=== PATIENT | male | born 1965 | race Caucasian/White ===

== ENCOUNTER 2018-06-17 13:28 | Outpatient (CLI) | payer BC ==
[~2018-06-17] VITALS: Ht 193 cm; Wt 115.7 kg
[~2018-06-17 13:28] MED LIST: ACHYD1T PO; BCL10T PO; CELE200C PO; CIPR500T78 PO; DULO60CA58 PO; DULO60CA6 PO; KETO75CA PO; MELO-195 PO; OMEP-10 PO; OXYC1TAB17 PO; PHEN200T27 PO; TAMS0.4C9 PO; TRAM50TA2 PO
== END 2018-06-17 13:59 | disposition home or self-care (01) ==
LOC: PREOP 13:28
PROVIDERS: ATTEND Surgery
DX: Z01.818 Encounter for other preprocedural examination (principal)

== ENCOUNTER 2018-06-30 10:15 | Day surgery (SDC) | payer BC ==
[~2018-06-30] VITALS: Ht 193 cm; Wt 115.7 kg
--- OUTSIDE RECORDS SUMMARY | 2018-06-30 10:19 | XMS REPORT | Clinical Summary ---
Author Author [facility] Address Unknown Phone Unavailable Care Team Providers Care Fitness Management Director Name Role Phone PCP Unavailable Allergies Not on File Current Medications Not on file Active Problems Not on file Social History Tobacco Use Types Packs/Day Years Used Date Never Assessed Sex Assigned at Date Recorded Not on file Last Filed Vital Signs Not on file Plan of Treatment Not on file Results Not on filefrom Last 3 Months
--- OUTSIDE RECORDS SUMMARY | 2018-06-30 10:20 | XMS REPORT | Continuity of Care Document ---
Author Author [facility] Organization [facility] Address Unknown Phone Unavailable Allergies Active Description Code Type Severity Reaction Onset Reported/Identified Relationship to Patient Clinical Status Yes No Known Drug Allergies [id number] Drug Allergy Unknown N/A 09/03/2014 Medications There is no data. Problems Date Dx Coded Attending Type Code Diagnosis Diagnosed By 12/22/2013 BENNIE MULLEN, COURTNEY Cespedes Ot V45.89 12/22/2013 COURTNEY AVERY MD Ot V57.1 09/04/2014 SOCORRO PEREZ MD Ot 592.0 CALCULUS OF KIDNEY 09/04/2014 SOCORRO PEREZ MD Ot 592.1 CALCULUS OF URETER 09/22/2014 CAROLYN MULLEN, JOSE Sanchez Ot 592.9 09/23/2014 CAROLYN MULLEN, JOSE A Ot 592.9 10/07/2014 CAROLYN MULLEN, JOSE A Ot 592.9 10/20/2014 CAROLYN MULLEN, JOSE A Ot 592.9 11/09/2014 CAROLYN MULLEN, JOSE Sanchez Ot 592.9 11/09/2014 CAROLYN MULLEN, JOSE A Ot 252.00 11/15/2014 CAROLYN MULLEN, JOSE A Ot 592.9 11/15/2014 CAROLYN MULLEN, JOSE A Ot 252.00 11/16/2014 SAURABH MULLEN, JACK Cespedes Ot V43.64 11/16/2014 SAURABH MULLEN, JACK Cespedes Ot V54.81 11/16/2014 SAURABH MULLEN, JACK Cespedes Ot V57.1 11/19/2014 SAURABH MULLEN, JACK Cespedes Ot V43.64 11/19/2014 JACK WILEY MD Ot V54.81 11/19/2014 SAURABH MULLEN, JACK Cespedes Ot V57.1 11/30/2014 JACK WILEY MD Ot V43.64 11/30/2014 JACK WILEY MD Ot V54.81 11/30/2014 JACK WILEY MD Ot V57.1 12/03/2014 JACK WILEY MD Ot V43.64 12/03/2014 JACK WILEY MD Ot V54.81 12/03/2014 JCAK WILEY MD Ot V57.1 12/06/2014 CAROLYN MULLEN, JOSE Sanchez Ot 252.9 12/10/2014 JACK WILEY MD Ot V43.64 12/10/2014 JACK WILEY MD Ot V54.81 12/10/2014 JACK WILEY MD Ot V57.1 2014 CAROLYN MULLEN, JOSE Sanchez Ot 592.9 URINARY CALCULUS NOS 12/22/2014 CAROLYN MULLEN, JOSE Sanchez Ot 252.9 01/06/2015 JACK WILEY MD Ot V43.64 01/06/2015 JACK WILEY MD Ot V54.81 01/06/2015 JACK WILEY MD Ot V57.1 01/21/2015 CHRIS MULLEN, SOCORRO Kenney Ot 786.50 02/03/2015 SOCORRO PEREZ MD Ot 786.50 02/13/2015 JACK WILEY MD Ot V43.64 HIP JOINT REPLACEMENT STATUS 02/13/2015 JACK WILEY MD Ot V54.81 AFTERCARE FOLLOWING JOINT REPLACEMENT 02/13/2015 JACK WILEY MD Ot V57.1 PHYSICAL THERAPY NEC 02/13/2015 JACK WILEY MD Ot Z47.1 AFTERCARE FOLLOWING JOINT REPLACEMENT BUI 02/13/2015 JACK WILEY MD Ot Z51.89 ENCOUNTER FOR OTHER SPECIFIED AFTERCARE 02/13/2015 JACK WILEY MD Ot Z96.649 PRESENCE OF UNSPECIFIED ARTIFICIAL HIP J 03/04/2015 JACK WILEY MD Ot V43.64 HIP JOINT REPLACEMENT STATUS 03/04/2015 JACK WILEY MD Ot V54.81 AFTERCARE FOLLOWING JOINT REPLACEMENT 03/04/2015 JACK WILEY MD Ot V57.1 PHYSICAL THERAPY NEC 03/04/2015 JACK WILEY MD Ot Z47.1 AFTERCARE FOLLOWING JOINT REPLACEMENT BUI 03/04/2015 JACK WILEY MD Ot Z96.641 PRESENCE OF RIGHT ARTIFICIAL HIP JOINT 09/29/2015 SELENE MULLEN, ZAHRA Junior Ot R10.30 LOWER ABDOMINAL PAIN, UNSPECIFIED 09/29/2015 SELENE MULLEN, ZAHRA Junior Ot Z53.21 PROC/TRTMT NOT CRD OUT D/T PT LV BEF SEE 09/30/2015 SELENE MULLEN, ZAHRA Junior Ot R10.30 LOWER ABDOMINAL PAIN, UNSPECIFIED 09/30/2015 SELENE MULLEN, ZAHRA Junior Ot Z53.21 PROC/TRTMT NOT CRD OUT D/T PT LV BEF SEE 06/16/2018 CAROLYN MULLEN, JOSE Sanchez Ot 252.00 HYPERPARATHYROIDISM, UNSPECIFIED 06/16/2018 CAROLYN MULLEN, JOSE Sanchez Ot 252.9 PARATHYROID DISORDER NOS 06/16/2018 CAROLYN MULLEN, JOSE Sanchez Ot 592.9 URINARY CALCULUS NOS 06/16/2018 CHRIS MULLEN, SOCORRO Kenney Ot 786.50 CHEST PAIN NOS 06/18/2018 BOBBY MULLEN, GEMA Franco Ot Z01.818 ENCOUNTER FOR OTHER PREPROCEDURAL EXAMIN 06/23/2018 BOBBY MULLEN, GEMA Franco Ot Z01.818 ENCOUNTER FOR OTHER PREPROCEDURAL EXAMIN Procedures Code Description Performed By Performed On 56.0 TU REMOV URETER OBSTRUCT 09/04/2014 Results There is no data. Encounters ACCT No. Visit Date/Time Discharge Status Pt. Type Provider Facility Loc./Unit Complaint [id number] 06/23/2018 10:30:00 06/23/2018 23:59:59 CLS Preadmit GEMA ROSALES MD [facility] ENDO SCREENING [id number] 06/17/2018 13:28:00 06/17/2018 13:59:00 DIS Outpatient GEMA ROSALES MD [facility] PREOP COLONOSCOPY [id number] 09/29/2015 21:38:00 09/29/2015 21:52:00 DIS Emergency ZAHRA MORTON MD [facility] ER ABD,GROIN PAIN [id number] 03/04/2015 08:07:00 03/04/2015 23:59:59 CLS Outpatient SAURABH MULLEN, JACK Cespedes [facility] REHAB H/O TOTAL HIP ARTHROPLASTY, RIGHT [id number] 02/10/2015 08:44:00 02/13/2015 00:01:00 DIS Outpatient SAURABH MULLEN, JACK Cespedes [facility] REHAB H/O TOTAL HIP ARTHROPLASTY, RIGHT [id number] 01/13/2015 11:57:00 01/13/2015 23:59:59 CLS Outpatient SOCORRO PEREZ MD [facility] CARD CHEST PAIN [id number] 12/21/2014 00:11:00 12/21/2014 23:59:59 CLS Preadmit JOSE LEON MD [facility] LAB STONES [id number] 09/27/2014 07:59:00 2014 00:01:00 DIS Outpatient JOSE LEON MD [facility] LAB STONES [id number] 12/01/2014 10:45:00 12/01/2014 23:59:59 CLS Outpatient JOSE LEON MD [facility] RAD ELEVATED PARATHYROID [id number] 10/21/2014 12:52:00 10/21/2014 23:59:59 CLS Outpatient JOSE LEON MD [facility] CARD ELEVATED PARATHYROID [id number] 09/04/2014 10:51:00 09/04/2014 14:22:00 DIS Inpatient SOCORRO PEREZ MD [facility] SURGICAL RENAL COLIC URETEROLITHIASIS [id number] 11/04/2013 07:57:00 12/22/2013 08:52:00 DIS Outpatient COURTNEY AVERY MD [facility] REHAB [id number] 10/08/2013 12:50:00 10/22/2013 00:01:00 DIS Outpatient [id number] 05/08/2013 07:30:00 05/08/2013 23:59:59 CLS Outpatient [id number] 03/23/2013 12:53:00 03/23/2013 23:59:59 CLS Outpatient [id number] 02/20/2013 08:08:00 02/20/2013 23:59:59 CLS Outpatient [id number] 01/07/2013 09:04:00 01/07/2013 23:59:59 CLS Outpatient
--- OUTSIDE RECORDS SUMMARY | 2018-06-30 10:20 | XMS REPORT | Clinical Summary ---
Author Author [facility] Organization [facility] Address Unknown Phone Unavailable Care Team Providers Care Psychologist Engineering Name Role Phone Jaxon Merlos MD PCP Michael Meneses MD 21 Baron Castle MD Unavailable Raf Mason RN Unavailable Unavailable Ann Velez APRN Unavailable Deysi Palacio MD Unavailable Lu Butler RN Unavailable Unavailable Ivory Lema APRN Unavailable Unavailable Meenakshi Naqvi PA-C Unavailable Neli Mitchell RN Unavailable Unavailable Nely Davis RN Unavailable Unavailable Source Comments Some departments are not documenting in the electronic medical record. If you do not see the information that you expected, contact Release of Information in the Health Information Management department at [phone] for further assistance in locating additional records.[facility] Allergies No Known Allergies Medications End Date Status Medication Sig Dispensed Refills Start Date Active celecoxib (CELEBREX) 200 Take 200 mg 0 mg capsule by mouth daily. Active baclofen (LIORESAL) 10 mg Take 10 mg by 0 tablet mouth twice daily. Active DULoxetine DR (CYMBALTA) Take 60 mg by 0 60 mg capsule mouth at bedtime daily. Active hydrochlorothiazide Take 25 mg by 0 (HYDRODIURIL) 25 mg mouth daily. tablet Active esomeprazole DR(+) Take 20 mg by 0 (NEXIUM 24HR) 20 mg mouth every capsule morning. Active cephalexin (KEFLEX) 500 Take 4 20 Cap 3 12/08/201 mg capsuleIndications: capsules by 5 S/P total hip mouth one arthroplasty hour before dental procedure. Use remaining capsules for future dental procedures. 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/28/2014 GERD (gastroesophageal reflux disease) 10/28/2014 Depression 10/28/2014 HTN (hypertension) 10/28/2014 Hip dysplasia 10/28/2014 Primary localized osteoarthrosis, pelvic region and thigh 09/29/2014 Pain in joint, pelvic region and thigh 09/29/2014 Disorder of bone and cartilage, unspecified 06/24/2014 Family History Medical History Relation Name Comments Alcohol liver disease Father Cancer Maternal Grandmother Cancer-Breast Maternal Grandmother Osteoporosis Mother Alcohol liver disease Paternal Grandfather Cancer-Lung Paternal Grandfather Alcohol liver disease Paternal Grandmother Cancer-Prostate Paternal Uncle Arthritis-osteo Neg Hx Arthritis-rheumatoid Neg Hx Asthma Neg Hx Cancer-Colon Neg Hx Cancer-Ovarian Neg Hx Cancer-Thyroid Neg Hx Cancer-Uterine Neg Hx Depression Neg Hx Diabetes Neg Hx Heart Disease Neg Hx High Cholesterol Neg Hx Hypertension Neg Hx Migraines Neg Hx Rashes/Skin Problems Neg Hx Seizures Neg Hx Stroke Neg Hx Thyroid Disease Neg Hx Relation Name Status Comments Father Maternal Grandmother Mother Paternal Grandfather Paternal Grandmother Paternal Uncle Alive Social History Date Tobacco Use Types Packs/Day Years Used Never Smoker Smokeless Tobacco: Former Chew Quit: 05/19/2008 User Tobacco Cessation: Counseling Given: Yes Alcohol Use Drinks/Week oz/Week Comments Yes 0 Standard 0.0 6 beers per month drinks or equivalent Sex Assigned at Date Recorded Not on file Industry Job Start Date Occupation Not on file Not on file Not on file Travel End Travel History Travel Start No recent travel history available. Last Filed Vital Signs Time Taken Vital Sign Reading 12/13/2015 11:00 AM CDT Blood Pressure 134/80 12/13/2015 11:00 AM CDT Pulse 73 12/26/2014 6:02 AM CDT Temperature 37.1 C (98.8 F) - Respiratory Rate - 12/26/2014 6:02 AM CDT Oxygen Saturation 93% - Inhaled Oxygen - Concentration 12/13/2015 11:00 AM CDT Weight 112.4 kg (247 lb 12.8 oz) 12/13/2015 11:00 AM CDT Height 193 cm (6' 4") 12/13/2015 11:00 AM CDT Body Mass Index 30.16 Plan of Treatment Health Maintenance Due Date Last Done Comments PHYSICAL (COMPREHENSIVE) 12/19/1974 EXAM HIV SCREENING 12/19/1982 DTAP/TDAP VACCINES (1 - 12/19/1985 Tdap) INFLUENZA VACCINE 12/18/2017 COLORECTAL CANCER 12/19/2017 SCREENING SHINGLES RECOMBINANT 12/19/2017 VACCINE (1 of 2) Results Not on filefrom Last 3 Months Insurance Payer Benefit Subscriber ID Type Phone Address Plan / Group BCBS MARY KATE BCBS MARY KATE xxxxxxxxxxxx PPO [facility] BL[facility] Advance Directives Patient has advance care planning documents, and code status on file. For more information, please contact: [facility] [address] [place] [address] Date Inactivated Comments Code Status Date Activated 12/26/2014 2:53 PM Full Code 12/23/2014 11:28 AM Provider has discussed Code Status No, discussion not w/Patient or Family? necessary based on Dx 10/31/2014 2:36 PM Full Code 10/28/2014 5:51 PM Provider has discussed Code Status No, discussion not w/Patient or Family? necessary based on Dx 07/10/2014 3:40 PM Full Code 07/09/2014 3:18 PM Provider has discussed Code Status No, discussion not w/Patient or Family? necessary based on Dx
[2018-06-30] MEDS ORDERED: NS IV 500 ML 500 ML IV PRN (10:27)
[2018-06-30] MEDS ORDERED: NS IV 500 ML 500 ML ONE (10:28)
[2018-06-30] MEDS ORDERED: fentaNYL INJECTION 100 MCG/2 ML AMP IVP ONE (10:30)
[2018-06-30] MEDS ORDERED: MIDAZOLAM 2 MG/2 ML (VERSED) VIAL IVP ONE (10:30)
--- NOTE | 2018-06-30 10:36 | History & Physicial ---
History of Present Illness History of Present Illness Reason for visit/HPI to undergo screening colonoscopy Date of Admission 06/30/18 Date Seen by a Provider: Jun 30, 2018 Time Seen by a Provider: 10:35 I consulted on this patient on 06/30/18 10:34 Attending Physician Gema Barakat MD Admitting Physician Jaxon Merlos MD Consult Allergies and Home Medications Allergies Coded Allergies: No Known Drug Allergies (Unverified , 09/03/14) Home Medications No Active Prescriptions or Reported Meds Patient Home Medication List Home Medication List Reviewed: Yes Past Selkbcd-Pxamwh-Xonvzy Hx Patient Social History Marrital Status: Employed/Student: employed 2nd Hand Smoke Exposure: No Recent Foreign Travel: No Contact w/other who traveled: No Recent Hopitalizations: No Immunizations Up To Date Tetanus Booster (TDap): Less than 5yrs Pediatric: No Date of Influenza Vaccine: Feb 17, 2018 Seasonal Allergies Seasonal Allergies: No Surgeries Yes (TUMORECTOMY FROM FEMUR, back surgery) Orthopedic Respiratory No Cardiovascular No Neurological Yes (back surgery) Reproductive System Hx Reproductive Disorders: No Sexually Transmitted Disease: No HIV/AIDS: No Genitourinary No Kidney Stones Gastrointestinal No Musculoskeletal Yes Chronic Back Pain Endocrine History of Endocrine Disorders: No HEENT History of HEENT Disorders: No Cancer No Psychosocial History of Psychiatric Problem: No Integumentary History of Skin or Integumenta: No Blood Transfusions History of Blood Disorders: No Family Medical History Family Hx: Glaucoma G8 BROTHER Respiratory disorder 19 FATHER Review of Systems Constitutional: no symptoms reported EENTM: no symptoms reported Respiratory: no symptoms reported Gastrointestinal: no symptoms reported Genitourinary: no symptoms reported Musculoskeletal: joint pain Skin: no symptoms reported Psychiatric/Neurological: No Symptoms Reported Physical Exam Vital Signs Capillary Refill : Height, Weight, BMI Height: 6'4.00" Weight: 255lbs. 0.6oz. 115.931014yg; 31.0 BMI Method: General Appearance: No Apparent Distress Neck: Normal Inspection Respiratory: Lungs Clear Cardiovascular: Regular Rate, Rhythm Gastrointestinal: Non Tender, Soft Rectal: Deferred Neurologic/Psychiatric: Alert, Oriented x3 Skin: Warm/Dry Assessment/Plan Assessment and Plan gentleman to undergo screening colonoscopy. Discussed in detail Admission Diagnosis Admission Status: Other (Outpt Proc) GEMA BARAKAT MD Jun 30, 2018 10:35
--- NOTE | 2018-06-30 10:36 | Conscious Sedation/ASA ---
Conscious Sedation Pre-Proced Time 10:36 ASA Score 2 For ASA 3 and 4: Consider anesthesia and medical clearance. Also, for patients with a history of failed moderate sedation consider anesthesia. Airway Lungs Heart ASA score ASA 1: a normal healthy patient ASA 2: a patient with a mild systemic disease (mid diabetes, controlled hypertension, obesity ASA 3: a patient with a severe systemic disease that limits activity (angina , COPD, prior Myocardial infarction) ASA 4: a patient with an incapacitating disease that is a constant threat to life (CHF, renal failure) ASA 5: a moribund patient not expected to survive 24 hrs. (ruptured aneurysm) ASA 6: a declared brain- patient whose organs are being harvested. For emergent operations, add the letter E after the classification Mallampati Classification Grade 1 Sedation Plan Discussed options with patient/fam The patient is an appropriate candidate to undergo the planned procedure, sedation, and anesthesia. The patient immediately re-assessed prior to indication. GEMA ROSALES MD Jun 30, 2018 10:36
[2018-06-30 11:03] VITALS: BP 119/77
[2018-06-30] MEDS ORDERED: fentaNYL INJECTION 100 MCG/2 ML AMP ONE (11:12)
[2018-06-30] MEDS ORDERED: MIDAZOLAM 2 MG/2 ML (VERSED) VIAL ONE ×3 (11:12)
--- NOTE | 2018-06-30 12:00 | Endo Procedure Record ---
Endo Procedure Report Date of Procedure Last Colonoscopy: No Jun 30, 2018 Surgeon (s) GEMA ROSALES MD Post Procedure/Op Diagnosis sigmoid diverticulosis Procedure Performed colonoscopy to cecum Description of Procedure Anesthesia Type: Conscious Sedation Specimen(s) collected/removed none Description of the Procedure Indication for the procedure: This gentleman came in for screening colonoscopy. He denied any family history of colon cancer. Informed consent was obtained after reviewing the procedure in detail. Description of the procedure: He was placed in left lateral decubitus position and his vital signs were monitored. Conscious sedation was achieved using Versed and fentanyl. Digital rectal examination was unremarkable. The colonoscope was then introduced into the rectum and advanced all the way up to the cecum. The scope was then withdrawn slowly and the mucosa examined in a systematic fashion. Finding: Sigmoid diverticulosis. He tolerated the procedure well and was taken back to the nursing area in a stable condition. Impression: Screening colonoscopy. No polyps. No family history. Recommend repeating in 10 years. Copy Copies To 1: SOCORRO PEREZ MD, XAVIER M MD Jun 30, 2018 12:00
--- NOTE | 2018-06-30 12:01 | Discharge Inst-Simple/Standard ---
Discharge Inst-Standard Discharge Medications New, Converted or Re-Newed RX: Other Patient Instructions/Follow Up Plan of Care/Instructions/FU: repeat colonoscopy in 10 years Activity as Tolerated: Yes Discharge Diet: No Restrictions GEMA ROSALES MD Jun 30, 2018 12:01
[2018-06-30 12:05] VITALS: BP 118/70
[2018-06-30 12:35] VITALS: BP 108/79
[2018-06-30 12:45] VITALS: BP 108/79
== END 2018-06-30 12:45 | disposition home or self-care (01) ==
LOC: ENDO 10:15
PROVIDERS: ATTEND Surgery
DX: Z12.11 Encounter for screening for malignant neoplasm of colon (principal); K57.30 Diverticulosis of large intestine without perforation or abscess without bleeding

== ENCOUNTER 2018-11-03 10:45 | Outpatient (RCR) | payer BC, OTHER | END 2018-11-04 | disposition home or self-care (01) | PROVIDERS: ATTEND Nurse Practitioner | DX: M51.16 Intervertebral disc disorders with radiculopathy, lumbar region (principal) ==

== ENCOUNTER 2018-11-06 10:45 | Outpatient (RCR) | payer OTHER | END 2019-01-20 14:20 | disposition home or self-care (01) | PROVIDERS: ATTEND Nurse Practitioner | DX: M51.16 Intervertebral disc disorders with radiculopathy, lumbar region (principal); Z98.890 Other specified postprocedural states ==

== ENCOUNTER 2022-04-17 08:46 | Outpatient (RCR) | payer BC, OTHER | END 2022-04-18 | disposition still patient (30) | PROVIDERS: ATTEND Orthopaedic Surgery | DX: M25.512 Pain in left shoulder (principal); Z96.612 Presence of left artificial shoulder joint ==

== ENCOUNTER 2022-05-15 09:15 | Outpatient (RCR) | payer BC | END 2022-05-19 | disposition home or self-care (01) | PROVIDERS: ATTEND Orthopaedic Surgery | DX: Z96.612 Presence of left artificial shoulder joint (principal) ==

== ENCOUNTER 2022-06-13 11:15 | Outpatient (RCR) | payer BC | END 2022-06-19 | disposition home or self-care (01) | PROVIDERS: ATTEND Orthopaedic Surgery | DX: Z96.612 Presence of left artificial shoulder joint (principal) ==

== ENCOUNTER 2022-06-27 11:18 | Outpatient (RCR) | payer BC | END 2022-07-17 | disposition home or self-care (01) | PROVIDERS: ATTEND Orthopaedic Surgery | DX: Z96.612 Presence of left artificial shoulder joint (principal) ==